=== PATIENT | male | born 1965 | race Caucasian/White ===

== ENCOUNTER 2018-03-20 08:05 | Day surgery (SDC) | payer BC ==
[2018-03-16 11:31] VITALS: BMI 27.1
[2018-03-20] MEDS ORDERED: AMPicillin/Sulbactam 1.5gm 1 GM/100 ML BAG IVPB ONE (09:46)
[2018-03-20] MEDS ORDERED: Propofol 10 mg/ml Inj (20 ML) ONE ×3 (10:18→10:43)
[2018-03-20] MEDS ORDERED: Sodium Chloride 0.9% 1,000 ML IV SCH (11:15)
[2018-03-20 11:16] VITALS: TEMP 97.6
[2018-03-20 12:21] VITALS: BP 126/60; RESP 18
[2018-03-20 12:58] VITALS: PULSE 55; O2SAT 97
== END 2018-03-20 12:50 | disposition home or self-care (01) ==
LOC: ENDO 08:05
PROVIDERS: ATTEND Internal Medicine Gastroenterology
DX: K59.00 Constipation, unspecified (principal); K62.1 Rectal polyp; K21.0 Gastro-esophageal reflux disease with esophagitis; K44.9 Diaphragmatic hernia without obstruction or gangrene; K29.50 Unspecified chronic gastritis without bleeding; K64.8 Other hemorrhoids
CPT/HCPCS: 43239; 45380; 88305; 88312; 88342; J0295; J2704; J7030; J7040